=== PATIENT | female | born 1945 | race Caucasian/White ===

== ENCOUNTER 2023-03-23 10:25 | Emergency (ER) | payer OTHER, MEDICARE ==
[~2023-03-23] VITALS: Ht 165.1 cm; Wt 79.5 kg
[2023-03-23 10:56] VITALS: BP 128/96
[2023-03-23] MEDS ORDERED: ORPH100T4 PO (14:00)
== END 2023-03-23 14:20 | disposition home or self-care (01) ==
LOC: ER 10:26
DX: S13.4XXA Sprain of ligaments of cervical spine, initial encounter (principal); Z88.1 Allergy status to other antibiotic agents; Z98.890 Other specified postprocedural states; V87.7XXA Person injured in collision between other specified motor vehicles (traffic), initial encounter; Y93.89 Activity, other specified; Y92.488 Other paved roadways as the place of occurrence of the external cause; Y99.8 Other external cause status
CPT/HCPCS: 72125; 99284

== ENCOUNTER 2023-08-11 13:10 | Emergency (ER) | payer MEDICARE ==
[~2023-08-11] VITALS: Ht 165.1 cm; Wt 79.5 kg
[~2023-08-11 13:10] MED LIST: ORPH100T4 PO
[2023-08-11 13:11] VITALS: BP 152/70; PULSE 69; RESP 16; O2SAT 97
[2023-08-11 16:03] LABS: BASOPHILS % (AUTO) 0.4 % (0-1); EOSINOPHILS # (AUTO) 0.4 X10'3 (0-0.9); EOSINOPHILS % (AUTO) 4.3 % (0-6); HEMATOCRIT 40.2 % (35.0-45.0); HEMOGLOBIN 13.2 g/dl (12.0-16.0); LYMPHOCYTES % (AUTO) 24.4 % (21-51); MEAN CORPUSCULAR HEMOGLOBIN 30.6 PG (27.0-31.0); MEAN CORPUSCULAR HGB CONC 32.8 g/dL (33.0-36.5); MEAN CORPUSCULAR VOLUME 93.2 FL (78-98); MEAN PLATELET VOLUME 7.8 FL (7.4-10.4); MONOCYTES # (AUTO) 0.6 X10'3 (0-0.9); NEUTROPHILS # (AUTO) 5.1 X10'3 (1.8-7.7); NEUTROPHILS % (AUTO) 62.9 % (42-75); PLATELET COUNT 370 X10'3 (140-440); RED BLOOD COUNT 4.32 X10'6 (4.20-5.60); RED CELL DISTRIBUTION WIDTH 14.6 % (11.5-14.5); WHITE BLOOD COUNT 8.1 X10'3 (4.5-11.0)
[2023-08-11 16:11] LABS: ALBUMIN 3.7 G/DL (3.4-5.0); ANION GAP 4 (8-16); BLOOD UREA NITROGEN 21 MG/DL (7-18); BUN/CREATININE RATIO 29.6 (10.0-20.0); CALCIUM 9.2 MG/DL (8.5-10.1); CHLORIDE 105 MMOL/L (99-107); CREATININE 0.71 MG/DL (0.40-0.90); GLUCOSE 90 MG/DL (70-104); POTASSIUM 3.5 MMOL/L (3.5-5.1); SODIUM 139 MMOL/L (135-145); TOTAL CARBON DIOXIDE 30.1 MMOL/L (24-32); eCRCL 62 ML/MIN; eGFR 80 ML/MIN
[2023-08-11 16:15] LABS: APTT 31 SECONDS (22-32); PROTHROMBIN TIME 10.7 SECONDS (9.0-12.0)
[2023-08-11 17:30] VITALS: TEMP 98.6
== END 2023-08-11 17:32 | disposition home or self-care (01) ==
LOC: ER 13:11
DX: S50.12XA Contusion of left forearm, initial encounter (principal); S05.12XA Contusion of eyeball and orbital tissues, left eye, initial encounter; Z88.1 Allergy status to other antibiotic agents; Z79.899 Other long term (current) drug therapy; W19.XXXA Unspecified fall, initial encounter; Y93.89 Activity, other specified; Y92.89 Other specified places as the place of occurrence of the external cause; Y99.8 Other external cause status
CPT/HCPCS: 36415; 70450; 73090; 80048; 85025; 85610; 85730; 99284

== ENCOUNTER → 2024-04-01 | Outpatient (CLI) | payer MEDICARE, OTHER | END | disposition home or self-care (01) | LOC: MRI 09:07 | PROVIDERS: ATTEND Physical Medicine & Rehabilitation | DX: M47.817 Spondylosis without myelopathy or radiculopathy, lumbosacral region (principal); M48.07 Spinal stenosis, lumbosacral region; M25.78 Osteophyte, vertebrae; M21.372 Foot drop, left foot; M51.36 Other intervertebral disc degeneration, lumbar region; M48.061 Spinal stenosis, lumbar region without neurogenic claudication | CPT/HCPCS: 72148 ==

== ENCOUNTER 2024-12-12 05:39 | Inpatient (IN) | payer MEDICARE ==
[2024-12-03 14:21] LABS: BASOPHILS % (AUTO) 0.6 % (0-1); EOSINOPHILS # (AUTO) 0.4 X10'3 (0-0.9); EOSINOPHILS % (AUTO) 4.9 % (0-6); LYMPHOCYTES # (AUTO) 1.6 X10'3 (1.1-4.8); LYMPHOCYTES % (AUTO) 20.1 % (21-51); MEAN CORPUSCULAR HEMOGLOBIN 30.6 PG (27.0-31.0); MEAN CORPUSCULAR HGB CONC 33.5 g/dL (33.0-36.5); MEAN CORPUSCULAR VOLUME 91.2 FL (78-98); MEAN PLATELET VOLUME 7.9 FL (7.4-10.4); MONOCYTES # (AUTO) 0.6 X10'3 (0-0.9); NEUTROPHILS # (AUTO) 5.2 X10'3 (1.8-7.7); NEUTROPHILS % (AUTO) 66.4 % (42-75); PRE OP HEMATOCRIT 40.8 % (35.0-45.0); PRE OP HEMOGLOBIN 13.7 g/dL (12.0-16.0); PRE OP PLATELET COUNT 409 X10'3 (140-440); PRE OP WHITE BLOOD COUNT 7.8 10'3 (4.8-10.8); RED BLOOD COUNT 4.48 X10'6 (4.20-5.60); RED CELL DISTRIBUTION WIDTH 13.9 % (11.5-14.5)
[2024-12-03 14:36] LABS: ALBUMIN 3.6 G/DL (3.4-5.0); ALKALINE PHOSPHATASE 77 IU/L (46-116); BLOOD UREA NITROGEN 26 MG/DL (7-18); CALCIUM 8.9 MG/DL (8.5-10.1); CHLORIDE 105 MMOL/L (99-107); CREATININE 0.52 MG/DL (0.40-0.90); PRE OP ALT 28 U/L (30-65); PRE OP ANION GAP 9 (8-16); PRE OP AST 22 U/L (10-37); PRE OP BILIRUB, TOTAL 0.4 MG/DL (0.0-1.0); PRE OP GLUCOSE 105 MG/DL (70-104); PRE OP POTASSIUM 3.6 MMOL/L (3.4-5.1); PRE OP SODIUM 144 MMOL/L (135-145); TOTAL CARBON DIOXIDE 30.4 MMOL/L (24-32); TOTAL PROTEIN 7.2 G/DL (6.4-8.2); eGFR > 90 ML/MIN
[2024-12-12] VITALS (26 sets, daily range): BP systolic 98–166; BP diastolic 51–100; PULSE 51–88; RESP 13–20; TEMP 97.4–97.8; O2SAT 9–100
[~2024-12-12] VITALS: Ht 165.1 cm; Wt 84.5 kg
[~2024-12-12 05:39] MED LIST changes: +CELE200C PO; -ORPH100T4 PO; +PSYL0.4C2 PO; +VIT1CAPS46 PO
[2024-12-12] MEDS: clindamycin-Cleocin 900mg/D5W 50 ML IV ONE (06:33)
[2024-12-12] MEDS: VANCOMYCIN/WATER FOR INJ (PEG) 1.5GM/300 ML IVPB IV ONE (06:34)
[2024-12-12] MEDS: ringers solution, lacted 1,000 ML IV SCH ×2 (06:34→13:36)
[2024-12-12] MEDS: famotidine 20mg tablet PO ONE (06:34)
[2024-12-12] MEDS ORDERED: vancomycin 1,000mg inj ONE (06:36)
[2024-12-12] MEDS ORDERED: BUPIVAcaine 0.5% inj/PF 30 ML ONE (07:13)
[2024-12-12] MEDS ORDERED: tetracaine 1% (10mg/ml) pres. free inj. ONE (07:14)
[2024-12-12] MEDS ORDERED: BUPIVACAINE liposomal/PF 13.3 MG/ML 10mL vial IM ONE (07:14)
[2024-12-12] MEDS ORDERED: MIDAZolam 1mg/ml 10ml vial ONE (07:17)
[2024-12-12] MEDS ORDERED: fentaNYL/PF 50MCG/1 ML 2ML syringe ONE (07:17)
[2024-12-12] MEDS ORDERED: morphine 2 MG/ML inj. syringe IV PRN (07:25)
[2024-12-12] MEDS ORDERED: ondansetron/PF 4mg/2ml inj IV PRN ×2 (07:25→11:20)
[2024-12-12] MEDS ORDERED: fentaNYL/PF 50MCG/1 ML 2ML syringe IV PRN ×2 (07:25)
[2024-12-12] MEDS ORDERED: labetalol 20mg/4ml (5mg/ml) syringe IV PRN (07:25)
[2024-12-12] MEDS ORDERED: PHENYLephrine 10mg/ml 5ml injection IV ONE (07:33)
[2024-12-12] MEDS ORDERED: HYDROmorphone 1 mg/ml syringe IV PRN (11:20)
[2024-12-12] MEDS ORDERED: naloxone 0.4 mg/ml inj IV PRN (11:20)
[2024-12-12] MEDS ORDERED: HYDROmorphone inj. 0.5 MG/0.5 ML DISP.SYRIN IV PRN (11:20)
[2024-12-12] MEDS ORDERED: diphenhydrAMINE 25mg capsule PO PRN ×2 (11:20)
[2024-12-12] MEDS: oxyCODONE IR 5mg (immed. release) tablet PO PRN (13:33)
[2024-12-12] MEDS: morphine 4 MG/ML inj SYRINge IV PRN (13:33)
[2024-12-12] MEDS: tranexamic acid 1gm/0.7% sal. 100 ML IV ONE (13:35)
[2024-12-12] MEDS: ROPIVAcaine inj 200 MG, epiNEPHrine inj 0.6 MG, morphine 10mg/ml inj. 5 MG in normal sa... IU STA (13:36)
[2024-12-12] MEDS: gabapentin 300mg capsule PO SCH (13:45)
[2024-12-12] MEDS: hydrALAZINE 20mg/ml inj. IV PRN (15:55)
[2024-12-12] MEDS ORDERED: non-formulary drug (Vit C/E/Zn/Coppr/Lutein/Zeaxan (Preservision Areds 2 Softgel) 1 CAP) PO SCH (20:00)
[2024-12-12] MEDS: NORMAL SALINE IV ONE (20:51)
[2024-12-12] MEDS: TRANEXAMIC ACID IV ONE (20:51)
[2024-12-12] MEDS: vancomycin/NS 1 GM ADD-VANTAGE 250 ML IV SCH (20:58)
[2024-12-12] MEDS: acetaminophen 325mg tablet PO SCH (20:59)
[2024-12-13 01:49] VITALS: BP 143/70; PULSE 82; RESP 13; TEMP 97.6; O2SAT 98
[2024-12-13 06:00] VITALS: BP 137/50; PULSE 75; RESP 16; TEMP 98; O2SAT 95
[2024-12-13] MEDS ORDERED: celeCOXIB 100mg capsule PO SCH (08:00)
[2024-12-13] MEDS: enoxaparin 40mg/0.4ml syringe SQ SCH (08:57)
[2024-12-13 10:00] VITALS: BP 132/52; PULSE 87; RESP 16; TEMP 97.9; O2SAT 94
[2024-12-13 18:00] VITALS: BP 92/62; PULSE 86; RESP 18; TEMP 98.2; O2SAT 96
[2024-12-13] MEDS: celeCOXIB 100mg capsule PO SCH (20:14)
[2024-12-13] MEDS: docusate sod 100mg capsule PO SCH (20:14)
[2024-12-13 22:00] VITALS: BP 127/46; PULSE 89; RESP 18; TEMP 97.8; O2SAT 94
[2024-12-14 06:00] VITALS: BP 113/58; PULSE 77; RESP 16; TEMP 98; O2SAT 95
[2024-12-14 07:02] LABS: BASOPHILS % (AUTO) 0.3 % (0-1); EOSINOPHILS # (AUTO) 0.3 X10'3 (0-0.9); HEMATOCRIT 35.4 % (35.0-45.0); HEMOGLOBIN 11.8 g/dl (12.0-16.0); LYMPHOCYTES # (AUTO) 1.4 X10'3 (1.1-4.8); LYMPHOCYTES % (AUTO) 16.3 % (21-51); MEAN CORPUSCULAR HEMOGLOBIN 30.5 PG (27.0-31.0); MEAN CORPUSCULAR HGB CONC 33.3 g/dL (33.0-36.5); MEAN CORPUSCULAR VOLUME 91.7 FL (78-98); MEAN PLATELET VOLUME 8.4 FL (7.4-10.4); MONOCYTES # (AUTO) 1.2 X10'3 (0-0.9); MONOCYTES % (AUTO) 14.2 % (2-12); NEUTROPHILS # (AUTO) 5.8 X10'3 (1.8-7.7); NEUTROPHILS % (AUTO) 66.2 % (42-75); PLATELET COUNT 294 X10'3 (140-440); RED BLOOD COUNT 3.86 X10'6 (4.20-5.60); RED CELL DISTRIBUTION WIDTH 13.9 % (11.5-14.5); WHITE BLOOD COUNT 8.7 X10'3 (4.5-11.0)
[2024-12-14] MEDS: docusate sod 100mg capsule PO SCH (08:00)
[2024-12-14 08:11] LABS: ALANINE AMINOTRANSFERASE 126 U/L (12-78); ALBUMIN 2.6 G/DL (3.4-5.0); ALBUMIN/GLOBULIN RATIO 0.8 (1.1-1.5); ALKALINE PHOSPHATASE 80 IU/L (46-116); ANION GAP 7 (8-16); ASPARTATE AMINO TRANSFERASE 74 U/L (10-37); BILIRUBIN,TOTAL 0.7 MG/DL (0.1-1.0); BLOOD UREA NITROGEN 17 MG/DL (7-18); BUN/CREATININE RATIO 30.4 (10.0-20.0); CALCIUM 8.6 MG/DL (8.5-10.1); CHLORIDE 103 MMOL/L (99-107); CREATININE 0.56 MG/DL (0.40-0.90); GLUCOSE 93 MG/DL (70-104); POTASSIUM 3.7 MMOL/L (3.5-5.1); SODIUM 138 MMOL/L (135-145); TOTAL CARBON DIOXIDE 28.4 MMOL/L (24-32); TOTAL PROTEIN 5.8 G/DL (6.4-8.2); eCRCL 76 ML/MIN; eGFR > 90 ML/MIN
[2024-12-14 10:00] VITALS: BP 115/59; PULSE 86; RESP 16; TEMP 97.8; O2SAT 92
[2024-12-14] MEDS: psyllium seed 5.8 gm packet (sugar-free) PO SCH (10:21)
[2024-12-14] MEDS: oxyCODONE IR 5mg (immed. release) tablet PO PRN (10:24)
[2024-12-14 18:00] VITALS: BP 116/59; PULSE 80; RESP 16; TEMP 98.7; O2SAT 94
[2024-12-14 20:00] VITALS: RESP 16; O2SAT 96
[2024-12-14 22:00] VITALS: BP 121/57; PULSE 85; RESP 16; TEMP 98.1; O2SAT 94
[2024-12-15 06:00] VITALS: BP 143/68; PULSE 84; RESP 16; TEMP 98.4; O2SAT 93
[2024-12-15 10:00] VITALS: BP 112/60; PULSE 90; RESP 22; TEMP 97.9; O2SAT 92
[2024-12-15] MEDS: bisacodyl 10mg suppository rectal RC STA (10:13)
== END 2024-12-15 11:30 | DRG 470 ==
LOC: PAS IN 05:39 → ORTHO 4S 16:15
PROVIDERS: ADMIT Orthopaedic Surgery; ATTEND Orthopaedic Surgery
PROC: 0JH80WZ Insertion of Totally Implantable Vascular Access Device into Abdomen Subcutaneous Tissue and Fascia, Open Approach (ICD-10-PCS; 2024-12-12)
PROC: 3E0T3BZ Introduction of Anesthetic Agent into Peripheral Nerves and Plexi, Percutaneous Approach (ICD-10-PCS; 2024-12-12)
PROC: 0SRC0J9 Replacement of Right Knee Joint with Synthetic Substitute, Cemented, Open Approach (ICD-10-PCS; principal; 2024-12-12 07:33)
DX: M17.11 Unilateral primary osteoarthritis, right knee (principal); Z96.652 Presence of left artificial knee joint; Z88.1 Allergy status to other antibiotic agents; M21.371 Foot drop, right foot; M21.372 Foot drop, left foot
CPT/HCPCS: 36415; 73560; 80053; 82948; 85025; 87081; 97110; 97116; 97161; 97530; A4215; A6253; A6258; A6446; A6449; A7000; C1713; C1776; C9250; G0378; J0360; J0666; J1650; J2250; J2270; J2371; J3010; J3370; J3372; J3490; J7120

== ENCOUNTER 2024-12-17 15:54 | Emergency (ER) | payer MEDICARE ==
[~2024-12-17] VITALS: Ht 165.1 cm; Wt 85.0 kg
[2024-12-17] MEDS: oxyCODONE/APAP 10/325mg tablet PO ONE (17:03)
[2024-12-17] MEDS: ondansetron 4mg rapidly disintigrating tab PO ONE (17:03)
[2024-12-17] MEDS ORDERED: CEPH-585 PO (18:30)
[2024-12-17 19:24] VITALS: BP 109/60; PULSE 74; RESP 16; O2SAT 97
== END 2024-12-17 19:28 | disposition home or self-care (01) ==
LOC: ER 15:55
DX: Z48.817 Encounter for surgical aftercare following surgery on the skin and subcutaneous tissue (principal); L76.82 Other postprocedural complications of skin and subcutaneous tissue; Z88.0 Allergy status to penicillin
CPT/HCPCS: 12004; 99284; A6402; J7030; Z7610; A6449

== ENCOUNTER 2024-12-31 16:05 | Outpatient (CLI) | payer MEDICARE | END 2024-12-31 23:59 | disposition home or self-care (01) | LOC: LAB 16:05 | PROVIDERS: ATTEND Orthopaedic Surgery | DX: M25.561 Pain in right knee (principal) | CPT/HCPCS: 87070; 87075 ==